=== PATIENT | male | born 1950 | race Caucasian/White ===

== ENCOUNTER → 2017-08-21 | Outpatient (CLI) | payer BC, MEDICARE ==
--- NOTE | 2017-08-21 10:21 | RAD ---
EXAMINATION: Magnetic resonance imaging (MRI) of the brain and brainstem without contrast 08/21/2017 9:00 AM HISTORY: Multiple recent falls with unsteady gait. TECHNIQUE: Multiplanar multi-weighted MRI of the brain and brainstem was performed without intravenous contrast using the general brain protocol. COMPARISON: None available. FINDINGS: The scalp and calvarium are normal. The superior sagittal sinus demonstrates normal venous flow. The corpus callosum is normal in shape and signal intensity. The posterior fossa is unremarkable. The pituitary and sella are normal. There are multiple T2/FLAIR signal hyperintense foci in the periventricular and subcortical white matter compatible with mild to moderate chronic small vessel ischemic changes. Brainstem is normal in appearance. Diffusion weighted images reveal no hyperintensities to suggest acute cerebral infarction. The susceptibility weighted sequences reveal no evidence of acute or chronic hemorrhage. Ventricles, sulci and basal cisterns are mildly prominent compatible with generalized cerebral volume loss. There is mild mucosal thickening of the right maxillary sinus. There is a moderate-sized mucus retention cyst in the left maxillary sinus. There is polypoid mucosal thickening involving the right nasal cavity with deviation of the nasal septum to the left. The visualized portions of the mastoids are unremarkable. The orbits appear normal. Normal flow voids are demonstrated in the carotid arteries and basilar artery. IMPRESSION: 1. No evidence for acute or subacute ischemia. Mild to moderate chronic small vessel ischemic changes are noted in the periventricular and subcortical white matter. 2. There suggestion of sinonasal polyposis, predominantly involving the right nasal cavity. Correlation with direct visualization is recommended. 3. Mild prominence of the ventricles, sulci and basal cisterns is compatible with mild generalized cerebral volume loss. Electronically signed by: Shannan Pederson MD (08/21/2017 10:18 AM) [id number]
[2017-08-21 10:35] LABS: GFR 75.2
== END | disposition home or self-care (01) ==
LOC: MRI 09:07
PROVIDERS: ATTEND Psychiatry & Neurology Neurology
DX: J34.1 Cyst and mucocele of nose and nasal sinus (principal); J34.2 Deviated nasal septum; R26.81 Unsteadiness on feet; R42 Dizziness and giddiness; R29.6 Repeated falls
CPT/HCPCS: 36415; 70551; 82550; 82565; 82607; 84520